=== PATIENT | female | born 1970 | race Caucasian/White ===

== ENCOUNTER 2020-10-23 19:54 | Emergency (ER) | payer MEDICARE, OTHER ==
[~2020-10-23 19:54] MED LIST: AMITIZA24 MCG PO; CYMBALTA60 MG PO; ESTRACE 1 MG TAB1 MG PO; GLUCOPHAGE1000 MG PO; HABITROL 14 MG P1 EA TOP; LANTUS100 UNIT/1 SQ; LYRICA300 MG PO; NEURONTIN 400400 MG PO; NOVOLOG100 UNIT/1 SQ; OMEPRAZOLE20 MG PO; OXYCONTIN80 MG PO; PERCOCET 10-321 EACH PO; PHENERGAN 12.12.5 M1 PO; PRINIVIL10 MG PO; PROTONIX40 MG PO; PROZAC40 MG PO; SENOKOT-S TABL1 EACH PO; VENTOLIN HFA 66.7 GM INH; VITAMIN B-1000 MCG/M SC; ZETIA 10 MG TAB10 MG PO; ZOCOR40 MG PO; ZYRTEC10 M3 PO
[2020-10-23 20:40] LABS: RED BLOOD COUNT 4.55 M/UL (4.00-5.10); WHITE BLOOD COUNT 13.6 K/UL (4.5-11.0)
[2020-10-23 20:51] LABS: BUN/CREATININE RATIO 14 (0-10)
[2020-11-21] MEDS ORDERED: BUSPIRONE HCL5 MG PO (07:28)
[2020-11-21] MEDS ORDERED: PROZAC20 MG PO (07:29)
[2020-11-21] MEDS ORDERED: FLONASE 0.05% N16 GM (07:32)
[2020-11-21] MEDS ORDERED: LASIX20 MG PO (07:32)
[2020-11-21] MEDS ORDERED: HUMALOG100 UNIT/2 SC (07:33)
[2020-11-21] MEDS ORDERED: NEURONTIN800 MG PO (07:33)
[2020-11-21] MEDS ORDERED: HYDROCHLOROTH12.5 MG PO (07:33)
[2020-11-21] MEDS ORDERED: LEVEMIR100 UNIT/1 SQ (07:34)
[2020-11-21] MEDS ORDERED: LYRICA300 MG PO (07:34)
[2020-11-21] MEDS ORDERED: MECLIZINE HCL25 MG PO (07:35)
[2020-11-21] MEDS ORDERED: NARCAN4 MG (07:35)
[2020-11-21] MEDS ORDERED: PREMARIN0.625 MG PO (07:36)
[2020-11-21] MEDS ORDERED: ZOCOR20 MG PO (07:37)
[2020-11-21] MEDS ORDERED: TRULICITY1.5 MG/0.5 SQ (07:38)
[2020-11-21] MEDS ORDERED: VENTOLIN HFA 66.7 GM INH (07:38)
[2020-11-21] MEDS ORDERED: ZYRTEC10 MG PO (07:39)
[2020-11-21] MEDS ORDERED: OXYCONTIN80 MG PO (07:39)
[2020-11-21] MEDS ORDERED: ZETIA10 MG PO (07:39)
== END 2020-10-23 21:51 | disposition home or self-care (01) ==
LOC: ER1 19:54
PROVIDERS: Family Medicine
DX: L98.499 Non-pressure chronic ulcer of skin of other sites with unspecified severity (principal); E11.9 Type 2 diabetes mellitus without complications; I10 Essential (primary) hypertension; F17.210 Nicotine dependence, cigarettes, uncomplicated
CPT/HCPCS: 80053; 83036; 85025; 85652; 86140; 99283

== ENCOUNTER → 2020-11-21 | Day surgery (SDC) | payer MEDICARE, OTHER ==
[~2020-11-21] MED LIST changes: +BUSPIRONE HCL5 MG PO; +FLONASE 0.05% N16 GM; +HUMALOG100 UNIT/2 SC; +HYDROCHLOROTH12.5 MG PO; +LASIX20 MG PO; +LEVEMIR100 UNIT/1 SQ; +MECLIZINE HCL25 MG PO; +NARCAN4 MG; +NEURONTIN800 MG PO; +PREMARIN0.625 MG PO; +PROZAC20 MG PO; +TRULICITY1.5 MG/0.5 SQ; +ZETIA10 MG PO; +ZOCOR20 MG PO; +ZYRTEC10 MG PO
== END | disposition home or self-care (01) ==
LOC: OR 06:41
DX: L98.9 Disorder of the skin and subcutaneous tissue, unspecified (principal); F41.9 Anxiety disorder, unspecified; G89.4 Chronic pain syndrome; F32.9 Major depressive disorder, single episode, unspecified; E11.42 Type 2 diabetes mellitus with diabetic polyneuropathy; E11.65 Type 2 diabetes mellitus with hyperglycemia; K21.9 Gastro-esophageal reflux disease without esophagitis; E78.00 Pure hypercholesterolemia, unspecified; I10 Essential (primary) hypertension; F17.210 Nicotine dependence, cigarettes, uncomplicated; Z79.4 Long term (current) use of insulin; Z79.891 Long term (current) use of opiate analgesic; Z79.899 Other long term (current) drug therapy
CPT/HCPCS: 82962; J0690; J2250; J2405; J7030; J7120